=== PATIENT | female | born 1980 ===

== ENCOUNTER 2018-05-16 13:45 | Emergency (ER) | payer MEDICAID ==
[2018-05-16 13:59] VITALS: BMI 40.0
[2018-05-16] MEDS ORDERED: Lidocaine 5% Patch TD STA (14:30)
--- NOTE | 2018-05-16 14:41 | ED PDOC ---
HPI: General Adult Time Seen by Provider: 05/16/18 14:07 Chief Complaint (Nursing): Pain, Chronic Chief Complaint (Provider): Chronic pain History Per: Patient History/Exam Limitations: no limitations Onset/Duration Of Symptoms: Days (1 month) Current Symptoms Are (Timing): Still Present Additional Complaint(s): Pt. has rheumatoid arthritis and fibromyalgia. Has chronic pain for 4 years. For 1 month more pain all over, more in the joints. Came today for pain relief. 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 Was seen by them and plaquanel is ordered but not authorized by insurance yet. Denies chest pain, numbness, tingles, dyspnea, weakness, abd pain. No incontinence, constipation, dysuria. Pain is the same, not new today. No injury. States is not preg. Past Medical History Reviewed: Nursing Documentation, Vital Signs Vital Signs: Last Vital Signs Temp 98.7 F 05/16/18 13:58 Pulse 101 H 05/16/18 13:58 Resp 16 05/16/18 13:58 BP 113/76 05/16/18 13:58 Pulse Ox 99 05/16/18 13:58 - Medical History PMH: Anxiety, Asthma, Bronchitis, Depression, Fibromyalgia, Rheumatoid Arthritis Denies: Chronic Kidney Disease - Surgical History Surgical History: No Surg Hx - Family History Family History: States: Unknown Family Hx - Social History Alcohol: None Drugs: Denies - Immunization History Hx Tetanus Toxoid Vaccination: No Hx Influenza Vaccination: No Hx Pneumococcal Vaccination: Yes (december 2016) - Home Medications Home Medications: Ambulatory Orders Medication Instructions Recorded clonazePAM [Klonopin] 1 mg PO PRN PRN 01/21/16 Albuterol 0.083% [Albuterol 0.083% 2.5 mg IH Q3H PRN #60 neb 01/23/16 Inhal Kellen (2.5 mg/3 ml) UD] Albuterol Sulfate [Proair Hfa] 0.09 mg IH Q3H PRN #1 inhaler 01/23/16 Paroxetine HCl [Paxil] 20 mg PO DAILY 07/16/17 busPIRone [Buspar] 1 tab PO DAILY 07/16/17 Famotidine [Pepcid] 40 mg PO DAILY #10 tablet 11/11/17 Lamotrigine [Lamictal Xr] 100 mg PO DAILY 11/11/17 Naproxen 500 mg PO BID PRN #14 tab 11/11/17 Ibuprofen [Motrin] 600 mg PO TID 7 Days tab 05/16/18 Lidocaine 5% [Lidoderm] 1 ea TD DAILY PRN #5 patch 05/16/18 - Allergies Allergies/Adverse Reactions: Allergies Allergy/AdvReac Type Severity Reaction Status Date / Time No Known Allergies Allergy Verified 11/11/17 16:05 Review of Systems ROS Statement: Except As Marked, All Systems Reviewed And Found Negative Musculoskeletal: Positive for: Other (pain joints) Physical Exam - Reviewed Nursing Documentation Reviewed: Yes Vital Signs Reviewed: Yes - Physical Exam Appears: Positive for: Non-toxic, No Acute Distress Head Exam: Positive for: ATRAUMATIC, NORMAL INSPECTION, NORMOCEPHALIC Skin: Positive for: Normal Color, Warm, DRY Eye Exam: Positive for: EOMI, Normal appearance, PERRL ENT: Positive for: Normal ENT Inspection Neck: Positive for: Normal, Painless ROM, Supple Cardiovascular/Chest: Positive for: Regular Rate, Rhythm Respiratory: Positive for: CNT, Normal Breath Sounds Gastrointestinal/Abdominal: Positive for: Soft. Negative for: Tenderness Back: Positive for: Normal Inspection. Negative for: L CVA Tenderness, R CVA Tenderness Extremity: Positive for: Normal ROM, Tenderness (mild upper and lower extremites ; no gross deformities or erythema/swelling). Negative for: Pedal Edema Neurologic/Psych: Positive for: Alert, social welfare administrator II-XII, Oriented. Negative for: Facial Droop - ECG O2 Sat by Pulse Oximetry: 99 Pulse Ox Interpretation: Normal - Progress ED Course And Treament: 1443: Stable. AAOx3. Pain free. Has chronic pain. FU with pcp and specialist. Aware of pain protocol in the ER. Disposition - Clinical Impression Clinical Impression: Chronic pain - Patient ED Disposition Is Patient to be Admitted: No Counseled Patient/Family Regarding: Diagnosis, Need For Followup, Rx Given - Disposition Referrals: [facility] [Outside] - 05/18/18 Disposition: Routine/Home Disposition Time: 14:44 Condition: STABLE Additional Instructions: Return if not better in 3 days. Prescriptions: Ibuprofen [Motrin] 600 mg PO TID 7 Days tab Lidocaine 5% [Lidoderm] 1 ea TD DAILY PRN #5 patch PRN Reason: Pain, Moderate (4-7) Instructions: Chronic Pain Forms: [employer] ([employer])
[2018-05-16 16:13] VITALS: BP 127/78; PULSE 78; RESP 20; TEMP 97; O2SAT 98
== END 2018-05-16 16:13 | disposition home or self-care (01) ==
LOC: H.ER 13:45
DX: G89.4 Chronic pain syndrome (principal)